=== PATIENT | male | born 1995 | race Caucasian/White ===

== ENCOUNTER 2018-03-13 14:11 | Emergency (ER) | payer OTHER ==
--- NOTE | 2018-03-13 16:15 | EDPHY ---
General Time Seen by Provider: 03/13/18 15:41 Narrative: CHIEF COMPLAINT: right knee pain HISTORY OF PRESENT ILLNESS: Patient presents by private vehicle with complaints of right knee pain. He states that he was skiing yesterday when "tweaked my knee." He described hyperextension and external rotation of the right knee. He noted sudden onset of pain on the medial aspect of the right knee. Moderate to severe. Worse with palpation and movement. Does not radiate. No numbness or tingling. No weakness. No injury elsewhere on his person. He is able to ambulate but unable to fully straighten the knee. Does have previous orthopedic injuries to the right knee. No other associated complaints or modifying factors. REVIEW OF SYSTEMS: 10 systems were reviewed and negative with the exception of the elements mentioned in the history of present illness. PCP: Femi Boateng SPECIALISTS: [facility] PAST MEDICAL HISTORY: Orthopedic injuries PAST SURGICAL HISTORY: No recent surgery SOCIAL HISTORY: Nonsmoker. [employer] student. Originally from [place] FAMILY HISTORY: Noncontributory EXAMINATION: Vitals: Triage VS reviewed General Appearance: Alert, no distress. Well appearing. Head: normocephalic, atraumatic Eyes: Pupils equal and round, no conjunctival pallor or injection Cardiovascular: Regular rate. Symmetric DP PT pulses. Good signs of perfusion lower extremities. Neurological: A&O, nonfocal. Antalgic but steady gait. Light sensory symmetric lower extremities. Skin: Warm and dry, no rash. No petechiae or purpura no laceration or puncture Extremities: Tenderness over the right MCL without bony tenderness of the knee. There is no crepitus or deformity. He is unable to fully straighten the right knee but has no bony tenderness of the tibia fibula. There is no tenderness of the right calcaneus, ankle or midfoot. Range of motion otherwise symmetric. Compartments are soft right lower extremity. Psychiatric: Mood and affect normal DIFFERENTIAL DIAGNOSES: Including but not limited to sprain, strain, fracture, dislocation MDM: 3:40 p.m. Acute right knee Tulio with pain medial greater than lateral. Minimal patellar tendon pain. Range of motion is slightly decreased lacking approximately 15 of extension. There is no palpable pain in the remainder of the extremity. He is awake alert. No acute distress. Neurovascular intact distally. 3:50 p.m. X-ray as read by me, radiologist, reveals no acute fracture dislocation. 4:15 p.m. X-ray as read by radiologist as negative for acute findings. His pain is isolated to the right MCL. There is no bony tenderness of the tibia or fibula. No signs of compartment syndrome. We discussed weight-bearing as tolerated with crutches and Raudel wrap. We discussed follow up with Orthopedics for definitive care. He is requesting Voltaren topical and by mouth as he has tolerated these despite his ibuprofen allergy. We discussed ED precautions. He is comfortable this plan. Discharged home stable condition. SUPERVISION: This patient was independently evaluated without direct involvement of or examination by the attending physician. CONSULTATION: None - Diagnostics Imaging Results: Imaging Impressions Knee X-Ray 03/13/18 15:15 Impression: Negative right knee radiographs. - History Smoking Status: Current some day smoker - Objective Vital Signs: Initial Vital Signs Temperature (C) 98.6 F 03/13/18 14:52 Heart Rate 91 03/13/18 14:52 Respiratory Rate 16 03/13/18 14:52 Blood Pressure 136/90 H 03/13/18 14:52 O2 Sat (%) 95 03/13/18 14:52 O2 Delivery Mode Room Air Allergies/Adverse Reactions: ibuprofen Allergy (Verified 03/13/18 14:56) Penicillins Allergy (Verified 03/13/18 14:56) Home Medications: Medication Instructions Recorded Diclofenac Sodium 1% [Voltaren Gel 1 nancy TP TID #1 tube 03/13/18 (*)] Diclofenac Sodium [Voltaren 75 MG 75 mg PO BID #30 tab 03/13/18 (*)] Departure - Departure Disposition: Home, Routine, Self-Care Clinical Impression: Right knee sprain Qualifiers: Encounter type: initial encounter Involved ligament of knee: medial collateral ligament Qualified Code(s): S83.411A - Sprain of medial collateral ligament of right knee, initial encounter Condition: Good Instructions: Knee Sprain (ED), Hinged Knee Brace (ED) Additional Instructions: 1. Weightbearing as tolerated with light activity 2. Crutches as provided as needed 3. Voltaren topical has requested 4. Tylenol [id number] 650 mg every 6 hr 5. Follow up with Orthopedics for definitive care Referrals: Angel Dowell MD [Medical Doctor] - As per Instructions Prescriptions: Diclofenac Sodium [Voltaren 75 MG (*)] 75 mg PO BID #30 tab Diclofenac Sodium 1% [Voltaren Gel (*)] 1 nancy TP TID #1 tube
[2018-03-13 16:30] VITALS: BP 125/76
== END 2018-03-13 16:29 | disposition home or self-care (01) ==
DX: S83.411A Sprain of medial collateral ligament of right knee, initial encounter (principal); W18.40XA Slipping, tripping and stumbling without falling, unspecified, initial encounter; Y93.23 Activity, snow (alpine) (downhill) skiing, snowboarding, sledding, tobogganing and snow tubing; F17.200 Nicotine dependence, unspecified, uncomplicated

== ENCOUNTER 2018-05-06 14:06 | Emergency (ER) | payer OTHER ==
[2018-05-06 14:32] VITALS: BP 130/77
--- NOTE | 2018-05-06 15:18 | EDPHY ---
H & P Stated Complaint: R meniscus srgy-now calf pain. Time Seen by Provider: 05/06/18 15:15 HPI/ROS: HPI: This is a 23-year-old male who presents with Chief Complaint: R meniscus srgy-now calf pain. Location: Right calf Quality: Pain and tightness Duration: Several days Signs and Symptoms: No bleeding, no radiation, no numbness, no weakness, no tingling, no incontinence, no decreased range of motion, no swelling, + pain, no fever Timing: Gradual onset Severity: [id number] Context: Patient reports that he had right knee meniscus arthroscopy performed in [place] on April 14 and then returned several days later to [facility] to return to school. He reports that approximately several days ago he started to developed right calf tightness that is worsened with dorsiflexion. He denies any actual swelling in his calf, shortness of breath, chest pain, skin color changes. No history of clotting disorders in the family Modifying Factors: Wearing brace per Orthopedics Comment: ROS: A comprehensive 10 system review of systems is otherwise negative aside from elements mentioned in the history of present illness. MEDICAL/SURGICAL/SOCIAL HISTORY: Medical history: Generally healthy. Does not take any regular medications. Surgical history: Denies Social history: Enrolled at [employer]. Current every day tobacco user. CONSTITUTIONAL: Well-developed, well-nourished, young adult white male, awake and alert, no obvious distress HEENT: Atraumatic and normocephalic. NECK: supple, no midline tenderness Cardiovascular: Normal S1/S2, regular rate, regular rhythm, without murmur rub or gallop. PULMONARY/CHEST: Symmetrical and nontender. no crepitus. Clear to auscultation bilaterally. Good air movement. No accessory muscle usage. ABDOMEN: Soft, nondistended, nontender. BACK: No midline tenderness EXTREMITIES: 2/2 pulses, strength 5/5, right KNEE: In hinged brace; mild effusion, mild medial line tenderness, no lateral joint line tenderness, full extension to 180, mild Homans sign. No palpable cords. good light touch sensation. no deformities, no clubbing, no cyanosis or edema. NEUROLOGICAL: no focal neuro deficits. GCS 15. Light touch sensation intact. SKIN: Warm and dry, no erythema. no rash. Good capillary refill. Source: Patient Exam Limitations: No limitations - Personal History Current Tetanus/Diphtheria Vaccine: Unsure Current Tetanus Diphtheria and Acellular Pertussis (TDAP): Unsure - Medical/Surgical History Hx Asthma: No Hx Chronic Respiratory Disease: No Hx Diabetes: No Hx Cardiac Disease: No Hx Renal Disease: No Hx Cirrhosis: No Hx Alcoholism: No Hx HIV/AIDS: No Hx Splenectomy or Spleen Trauma: No Other PMH: surg R thumb, R meniscus. - Social History Smoking Status: Current some day smoker Constitutional: Initial Vital Signs Temperature (C) 36.9 C 05/06/18 14:29 Heart Rate 91 05/06/18 14:29 Respiratory Rate 18 05/06/18 14:29 Blood Pressure 130/77 H 05/06/18 14:29 O2 Sat (%) 95 05/06/18 14:29 Allergies/Adverse Reactions: ibuprofen Allergy (Intermediate, Verified 05/06/18 14:28) Swelling/neck,face,throat Penicillins Allergy (Verified 05/06/18 14:28) Home Medications: Medication Instructions Recorded Apixaban [Eliquis 30-day Starter 1 kit PO AD #1 kit 05/06/18 Pack] Medical Decision Making - Diagnostics Imaging Results: Imaging Impressions Extremity Venous Study 05/06/18 15:18 Impression: Thrombus involving proximal peroneal veins in the proximal right calf. No additional evidence of DVT right lower extremity. Findings discussed with Abigail Crowell PAC at 16:41 hour, 05/06/2018. ED Course/Re-evaluation: Vital signs reviewed and stable upon arrival. Right lower extremity ultrasound ordered Risk factors to include recent surgery, long plane flight, tobacco use 1620: Notified by Radiology that ultrasound is positive for DVT; in both peroneal veins from lower calf to ankle This is provoked DVT Given Eliquis 10 mg ED now and starter pack for same Patient reports that he can follow up with [facility] No signs of neurovascular compromise/tenting of skin/compartment syndrome/ extremities and joints examined above and below area of concern and are neurovascularly intact. This patient was seen under the supervision of my secondary supervising physician. I evaluated care for this patient independently. Discussed this patient with Dr. Sexton who did not see the patient. Differential Diagnosis: Leg swelling including but not limited to hypoalbuminemia, congestive heart failure, cor pulmonale, chronic venous stasis and DVT. Departure - Departure Disposition: Home, Routine, Self-Care Clinical Impression: Status post arthroscopic surgery of right knee Deep vein thrombosis (DVT) of right lower extremity Qualifiers: Affected thrombotic vein of extremity: unspecified vein of extremity Chronicity : acute Qualified Code(s): I82.401 - Acute embolism and thrombosis of unspecified deep veins of right lower extremity Condition: Good Instructions: Deep Vein Thrombosis (ED), Deep Vein Thrombosis Prevention (ED) Additional Instructions: Take Eliquis as prescribed. This seems to be provoked by surgery, long airplane flight and tobacco use. Please avoid taking NSAIDs including ibuprofen, Motrin, Advil, Aleve while taking Eliquis. Most likely you will only need to take Eliquis for 3 months. You will be given the 1st month starter pack in the ER by follow up with student health clinic in the next 2 weeks for re-evaluation and you will need prescription for continued Eliquis. Referrals: RASHAD DOVE ,. [Clinic] - As per Instructions Prescriptions: Apixaban [Eliquis 30-day Starter Pack] 1 kit PO AD #1 kit
[2018-05-06] MEDS ORDERED: APIXABAN 5 MG TAB PO ONE (16:20)
== END 2018-05-06 17:19 | disposition home or self-care (01) ==
DX: I82.401 Acute embolism and thrombosis of unspecified deep veins of right lower extremity (principal); Z98.890 Other specified postprocedural states

== ENCOUNTER 2018-05-17 10:24 | Emergency (ER) | payer OTHER ==
--- NOTE | 2018-05-17 10:54 | EDPHY ---
H & P Time Seen by Provider: 05/17/18 10:32 HPI/ROS: CHIEF COMPLAINT: Right leg pain HISTORY OF PRESENT ILLNESS: Tweaked his knee skiing was seen in our ED and subsequently had meniscus surgery in [place] about 5 weeks ago. Was seen in our ED on May 06 and diagnosed with DVT and started on Eliquis. Presents today with continued pain in the right leg. Denies chest pain or shortness of breath. Denies weakness or numbness in the foot. No redness or on the leg or fever. REVIEW OF SYSTEMS: Eye: no change in vision ENT: no sore throat Cardiac: no chest pain or syncope Pulmonary: no cough or SOB Abdomen: no vomiting, diarrhea, abdominal pain Musculoskeletal: Left small finger injury 5 weeks ago. Skin: no rash Neuro: no headache Constitutional: no fever : no urinary symptoms A comprehensive 10 point review of systems is otherwise negative aside from elements mentioned in the history of present illness. PAST MEDICAL HISTORY: Arthroscopic surgery and DVT as above Social history: From [place] General Appearance: Alert and conversant, cooperative. Eyes: No scleral icterus. ENT, Mouth: Normal mucous membranes. Respiratory: Normal respiratory effort, breath sounds equal, lungs are clear to auscultation. Cardiovascular: Regular rate and rhythm. Gastrointestinal: Abdomen is soft and non tender. Neurological: Alert, face symmetric, normal motor and sensory in extremities. Skin: No redness warmth or swelling on the right leg. Incisions clean dry and intact. Musculoskeletal: Compartments in the right leg are soft. He can range his knee. Normal motor sensory and dorsalis pedis pulse in the right foot. He does have some tenderness and swelling at the PIP and proximal phalanx of the left small finger with no rotation on flexion. Psychiatric: Not agitated. Emergency Department course/MDM: Case management consult for Eliquis and health concerns issues. He will [facility] for further anticoagulation before he goes home to [place]. Left small finger x-ray. Pain in right leg would be expected, he does not have signs or symptoms of arterial occlusion or cellulitis or compartment syndrome or worsening DVT or PE. Results including left small finger PIP fracture discussed with the patient, this is approximately 5-weeks-old at this time. There is a little bit of clicking with varus and valgus stress at that joint, mandatory hand follow-up. He is warned he should follow up with the hand specialist back in [place] when he returns to discuss management options. Smoking Status: Current some day smoker Constitutional: Initial Vital Signs Temperature (C) 37 C 05/17/18 10:31 Heart Rate 82 05/17/18 10:31 Respiratory Rate 17 05/17/18 10:31 Blood Pressure 137/79 H 05/17/18 10:31 O2 Sat (%) 98 05/17/18 10:31 O2 Delivery Mode Room Air Allergies/Adverse Reactions: ibuprofen Allergy (Intermediate, Verified 05/17/18 10:30) Swelling/neck,face,throat Penicillins Allergy (Verified 05/17/18 10:30) Home Medications: Medication Instructions Recorded Apixaban [Eliquis 30-day Starter 1 kit PO AD #1 kit 05/06/18 Pack] Medical Decision Making - Diagnostics Imaging Results: Imaging Impressions Finger X-Ray 05/17/18 10:50 Impression: Dorsal cortical avulsion fracture off the base of the fifth digit middle phalanx at the PIP joint with associated soft tissue swelling, but no evidence of joint subluxation. Imaging: I viewed and interpreted images myself Departure - Departure Disposition: Home, Routine, Self-Care Clinical Impression: DVT (deep venous thrombosis) Qualifiers: DVT location: lower extremity Affected thrombotic vein of extremity: unspecified vein of extremity Chronicity: acute Laterality: right Qualified Code (s): I82.401 - Acute embolism and thrombosis of unspecified deep veins of right lower extremity Condition: Good Instructions: Deep Vein Thrombosis (ED) Additional Instructions: Continue your Eliquis. You have a small mostly healed fracture in the PIP joint of your left small finger, please follow-up with a hand specialist when you return home in June to [place]. Referrals: RASHAD Méndez,. [Clinic] - As per Instructions
[2018-05-17 11:51] VITALS: BP 129/69
--- NOTE | 2018-05-17 12:10 | ASMTCMCOM ---
CM Note CM Note Notes: Patient returns to ED with concerns related to his recent ED visit on 04/26/18. Patient explains to this CM that he needs "pre authorization" for his insurance to fill a prescrription for Eliquis. Chart reviewed. Patient received a 30 day trial and prescription for Eliquis on 05/06/18. This 30 day trial was filled on 05/07/18 at [facility] in [place] . I have contacted Carmen [facility] and she confirms that patient will almas pre -authorization from following prescriber for insurance coverage of Eliquis. Patient states that he has been to [facility] campus at and is okay with follow up there for onging care. I have contacted Precious CARPENTER at [facility] and scheduled an appointment for patient with Dr. Mccann for May 19 at 1:00 PM. Precious is aware that patient has another 10 days of his current Eliquis prescription (per the 30 day trial) and that he will need further prescribing and pre-authorization to continue. ED records available to Precious and Dr. Mccann and CM available for further needs. Patient is aware of his appointment with Dr. Mccann and undersatnds process for obtaining pre -authorization through his ongoing (Dr. mccann) prescriber of Eliquis. Date Signed: 05/17/2018 12:09 PM Electronically Signed By:Luciana Dorsey RN
== END 2018-05-17 12:05 | disposition home or self-care (01) ==
DX: I82.401 Acute embolism and thrombosis of unspecified deep veins of right lower extremity (principal); S62.627A Displaced fracture of middle phalanx of left little finger, initial encounter for closed fracture; X50.9XXA Other and unspecified overexertion or strenuous movements or postures, initial encounter; Y93.23 Activity, snow (alpine) (downhill) skiing, snowboarding, sledding, tobogganing and snow tubing; Y92.9 Unspecified place or not applicable; Y99.9 Unspecified external cause status; Z79.01 Long term (current) use of anticoagulants